=== PATIENT | female | born 1980 | race Two or more races ===

== ENCOUNTER 2019-06-12 23:31 | Emergency (ER) | payer MEDICAID ==
[~2019-06-12] VITALS: Ht 160 cm; Wt 99.8 kg
[~2019-06-12 23:31] MED LIST: ACET1TAB12 PO; GUAI100S23 PO
--- NOTE | 2019-06-12 23:50 | NUR ---
PT AAOX4. AMBULATORY WITH STEADY GAIT. C/O ABD PAIN WITH N/V TODAY. PT PLACED ON MONITOR AND PULSE OX. IS AT BEDSIDE FOR EVAL. WILL CONTINUE TO MONITOR.
[2019-06-13] MEDS ORDERED: ONDANSETRON HCL/PF 4 MG/2 ML VIAL IVP ONE
[2019-06-13] MEDS ORDERED: ONDANSETRON HCL/PF 4 MG/2 ML VIAL ONE
--- NOTE | 2019-06-13 00:04 | NUR ---
LINE INITIATED, LABS SENT TO LAB.
[2019-06-13 00:12] LABS: BASOPHILS % (AUTO) 0.5 % (0.0-2.0); HEMATOCRIT 37 % (33-45); HEMOGLOBIN 12.5 g/dL (11.5-14.8); LYMPHOCYTES % (AUTO) 34.6 % (20.0-44.0); MEAN CORPUSCULAR HGB CONC 34 g/dl (31.0-36.0); MEAN CORPUSCULAR VOLUME 88 fL (82-100); MONOCYTES # (AUTO) 0.6 /CMM (0.1-1.30); MONOCYTES % (AUTO) 6.7 % (2.0-12.0); NEUTROPHILS # (AUTO) 4.8 /CMM (1.8-8.9); NEUTROPHILS % (AUTO) 56.2 % (43.0-81.0); PLATELET COUNT (AUTO) 272 /CMM (150-450); RED BLOOD CELL COUNT(AUTO) 4.23 MIL/uL (4.0-5.2); WHITE BLOOD COUNT (AUTO) 8.6 K/uL (4.3-11.0)
[2019-06-13 00:24] LABS: ALBUMIN 3.7 g/dL (3.4-5.0); BILIRUBIN,DIRECT 0.1 mg/dL (0.0-0.2); BILIRUBIN,TOTAL 0.2 mg/dL (0.2-1.0); CALCIUM, SERUM 8.5 mg/dL (8.5-10.1); CREATININE 0.7 mg/dL (0.6-1.3); TOTAL PROTEIN, SERUM 7.3 g/dL (6.4-8.2)
--- NOTE | 2019-06-13 00:51 | NUR ---
PT DENIES PAIN, VSS.
--- NOTE | 2019-06-13 01:03 | NUR ---
Patient discharged to home in stable condition. Written and verbal after care instructions given. Patient verbalizes understanding of instruction. IV removed. Catheter intact and site benign. Pressure and 4x4 applied to site. No bleeding noted.
[2019-06-13 01:04] VITALS: BP 124/81
== END 2019-06-13 01:04 | disposition home or self-care (01) ==
LOC: ER 23:39
DX: R10.11 Right upper quadrant pain (principal); R10.12 Left upper quadrant pain; R11.2 Nausea with vomiting, unspecified; Z88.6 Allergy status to analgesic agent
CPT/HCPCS: 36415; 80048; 80076; 83690; 85025; 96374; 99283; J2405

== ENCOUNTER 2020-11-24 10:47 | Emergency (ER) | payer MEDICAID, OTHER ==
[~2020-11-24] VITALS: Ht 157.5 cm; Wt 90.7 kg
--- NOTE | 2020-11-24 11:06 | NUR ---
THE PATIENT BIBS FOR C/O VAGINAL BLEEDING 7 WKS . THE PATIENT STATES HAVING ON AND OFF ABDOMINAL PAIN 6/10. RESPIRATION REGULAR AND UNLABORED. WILL CONTINUE TO MONITOR THE PATIENT.
--- NOTE | 2020-11-24 11:12 | NUR ---
DR KNIGHT AT THE BEDSIDE
--- NOTE | 2020-11-24 11:23 | NUR ---
US TECH AT THE BEDSIDE
[2020-11-24 12:04] LABS: BASOPHILS % (AUTO) 0.3 % (0.0-2.0); EOSINOPHILS % (AUTO) 1.1 % (0.0-6.0); HEMATOCRIT 37 % (33-45); HEMOGLOBIN 12.1 g/dL (11.5-14.8); LYMPHOCYTES # (AUTO) 1.7 K/uL (0.8-4.8); LYMPHOCYTES % (AUTO) 18.8 % (20.0-44.0); MEAN CORPUSCULAR HGB CONC 33 g/dl (31.0-36.0); MEAN CORPUSCULAR VOLUME 85 fL (82-100); MONOCYTES # (AUTO) 0.7 K/uL (0.1-1.30); MONOCYTES % (AUTO) 7.7 % (2.0-12.0); NEUTROPHILS # (AUTO) 6.5 K/uL (1.8-8.9); NEUTROPHILS % (AUTO) 72.1 % (43.0-81.0); PLATELET COUNT (AUTO) 228 K/uL (150-450); RED BLOOD CELL COUNT(AUTO) 4.37 MIL/uL (4.0-5.2)
[2020-11-24 12:05] LABS: CALCIUM, SERUM 8.2 mg/dL (8.5-10.1); CREATININE 0.6 mg/dL (0.6-1.3); POTASSIUM 3.7 mmol/L (3.5-5.1)
[2020-11-24 12:35] VITALS: BP 131/82
--- NOTE | 2020-11-24 12:35 | NUR ---
Patient discharged to home in stable condition. Written and verbal after care instructions given. Patient verbalizes understanding of instruction.
== END 2020-11-24 12:36 | disposition home or self-care (01) ==
LOC: ER 10:49
DX: O20.0 Threatened abortion (principal); Z3A.01 Less than 8 weeks gestation of pregnancy; Z88.6 Allergy status to analgesic agent; Z79.899 Other long term (current) drug therapy
CPT/HCPCS: 36415; 76856-TC; 80048-TC; 84702-TC; 85025-TC; 86850-TC

== ENCOUNTER 2020-12-02 12:22 | Emergency (ER) | payer OTHER ==
[~2020-12-02] VITALS: Ht 157.5 cm; Wt 90.7 kg
--- NOTE | 2020-12-02 13:10 | NUR ---
I was seen here last week for a possible missed AB/VB was seen and told to come back for re-chaeck. On room air, breathing evenly and unlabored. Kept comfortable, will continue to monitor accordingly.
[2020-12-02 13:40] LABS: BASOPHILS % (AUTO) 0.4 % (0.0-2.0); HEMATOCRIT 37 % (33-45); LYMPHOCYTES # (AUTO) 1.9 K/uL (0.8-4.8); LYMPHOCYTES % (AUTO) 22.8 % (20.0-44.0); MEAN CORPUSCULAR HGB CONC 32 g/dl (31.0-36.0); MEAN CORPUSCULAR VOLUME 84 fL (82-100); MONOCYTES # (AUTO) 0.6 K/uL (0.1-1.30); MONOCYTES % (AUTO) 7.1 % (2.0-12.0); NEUTROPHILS # (AUTO) 5.6 K/uL (1.8-8.9); NEUTROPHILS % (AUTO) 67.7 % (43.0-81.0); PLATELET COUNT (AUTO) 271 K/uL (150-450); RED BLOOD CELL COUNT(AUTO) 4.41 MIL/uL (4.0-5.2); WHITE BLOOD COUNT (AUTO) 8.3 K/uL (4.3-11.0)
[2020-12-02 13:49] LABS: CALCIUM, SERUM 8.8 mg/dL (8.5-10.1); CREATININE 0.6 mg/dL (0.6-1.3); POTASSIUM 4.2 mmol/L (3.5-5.1)
[2020-12-02 14:20] VITALS: BP 121/81
--- NOTE | 2020-12-02 14:20 | NUR ---
Patient discharged to home in stable condition. Written and verbal after care instructions given. Patient verbalizes understanding of instruction.
== END 2020-12-02 14:20 | disposition home or self-care (01) ==
LOC: ER 12:41
DX: O03.9 Complete or unspecified spontaneous abortion without complication (principal); Z88.6 Allergy status to analgesic agent; Z79.899 Other long term (current) drug therapy
CPT/HCPCS: 36415; 76805-TC; 80048-TC; 84702-TC; 85025-TC

== ENCOUNTER 2021-10-16 22:42 | Emergency (ER) | payer OTHER ==
[~2021-10-16] VITALS: Ht 157.5 cm; Wt 96.2 kg
--- NOTE | 2021-10-16 22:50 | NUR ---
BIBS FOR C/O N/V, BILATERAL UPPER QUAD ABD PAIN, CHILLS AND DYSURIA. PATIENT ALERT AND ORIENTED X3. AMBULATORY WITH NON LABORED BREATHING IN BED 10 ON MONITOR AND POX IN GOWN AWAITING MD CARRANZA.
[2021-10-16] MEDS ORDERED: ONDANSETRON HCL/PF 4 MG/2 ML VIAL ONE (23:12)
--- NOTE | 2021-10-16 23:21 | NUR ---
COVID SWAB DONE AND SENT TO LAB
--- NOTE | 2021-10-16 23:22 | NUR ---
BLOOD COLLECTED AND SENT TO LAB
--- NOTE | 2021-10-16 23:22 | NUR ---
URINE COLLECTED AND SENT TO LAB
[2021-10-16] MEDS ORDERED: ONDANSETRON HCL/PF 4 MG/2 ML VIAL IVP ONE (23:30)
[2021-10-16] MEDS ORDERED: IV NS 0.9% 1,000 ML BAG IV ONE (23:30)
[2021-10-16 23:38] LABS: BILIRUBIN,URINE SMALL (NEGATIVE); COLOR,URINE YELLOW (YELLOW); LEUKOCYTE ESTERASE ,URINE SMALL (NEGATIVE); NITRITE, URINE NEGATIVE (NEGATIVE); PH,URINE 6.5 (5.0-8.0); PROTEIN,URINE NEGATIVE (NEGATIVE); UGLUCOSE NEGATIVE (NEGATIVE)
[2021-10-16 23:39] LABS: BASOPHILS % (AUTO) 0.3 % (0.0-2.0); EOSINOPHILS % (AUTO) 0.6 % (0.0-6.0); HEMATOCRIT 37 % (33-45); HEMOGLOBIN 12.1 g/dL (11.5-14.8); LYMPHOCYTES # (AUTO) 1.6 K/uL (0.8-4.8); LYMPHOCYTES % (AUTO) 13.8 % (20.0-44.0); MEAN CORPUSCULAR HGB CONC 33 g/dl (31.0-36.0); MEAN CORPUSCULAR VOLUME 81 fL (82-100); MONOCYTES # (AUTO) 0.6 K/uL (0.1-1.30); MONOCYTES % (AUTO) 5.1 % (2.0-12.0); NEUTROPHILS % (AUTO) 80.2 % (43.0-81.0); PLATELET COUNT (AUTO) 279 K/uL (150-450); RED BLOOD CELL COUNT(AUTO) 4.59 MIL/uL (4.0-5.2); WHITE BLOOD COUNT (AUTO) 11.3 K/uL (4.3-11.0)
[2021-10-16 23:58] LABS: ALBUMIN 3.3 g/dL (3.4-5.0); BILIRUBIN,DIRECT 0.1 mg/dL (0.0-0.2); BILIRUBIN,TOTAL 0.4 mg/dL (0.2-1.0); CALCIUM, SERUM 8.3 mg/dL (8.5-10.1); CREATININE 0.7 mg/dL (0.6-1.3); POTASSIUM 3.9 mmol/L (3.5-5.1); TOTAL PROTEIN, SERUM 7.4 g/dL (6.4-8.2)
[2021-10-17 00:06] LABS: BACTERIA,URINE Moderate /HPF (None Seen); RBC,URINE 0-2 /HPF (0-2); SQUAMOUS EPITHELIAL CELL,UR Many /HPF (None Seen)
[2021-10-17] MEDS ORDERED: ONDA4TAB5 PO (00:08)
[2021-10-17 00:13] VITALS: BP 132/91
--- NOTE | 2021-10-17 00:13 | NUR ---
Patient discharged to home in stable condition. Written and verbal after care instructions given. Patient verbalizes understanding of instruction.
== END 2021-10-17 00:31 | disposition home or self-care (01) ==
LOC: ER 22:50
DX: R11.2 Nausea with vomiting, unspecified (principal); Z20.822 Contact with and (suspected) exposure to COVID-19; R03.0 Elevated blood-pressure reading, without diagnosis of hypertension
CPT/HCPCS: 99283; 96374; 96361; 87426; 85025; 80048; 87086; 83690; 80076; 81001; 36415; J2405; J7030; C9803